=== PATIENT | female | born 1960 | race Caucasian/White ===

== ENCOUNTER 2016-12-30 15:04 | Inpatient (IN) | payer OTHER ==
[~2016-12-30] VITALS: Ht 157.5 cm; Wt 63.5 kg
--- NOTE | ~2016-12-30 | DS ---
Unit #: [id number] #: [id number] Patient: EDNA TATUM [id number] [facility] [address] [place] [address] [id number] MR#: [id number] NAME: EDNA TATUM. ROOM: [facility] Age: 56 Sex: F Admission Date: 12/30/2016 : 1960 Discharge Date: 01/01/2017 Attending Physician: Jose Islas M.D. Primary Care Physician: No Primary Care Physician DISCHARGE SUMMARY REASON FOR ADMISSION The patient is a 56-year-old white female admitted with a recurrence of an amphetamine-induced psychosis. HOSPITAL COURSE [facility] and [facility] suicide precaution. She was continued on previously prescribed home medications. She presented as quite confused and bizarre on her first day of hospitalization but just as had been the case during her last stay in the hospital had cleared entirely on the second day of hospitalization. On that day she requested discharge and it was so ordered. DISCHARGE DIAGNOSES Vinton I Methamphetamine use disorder with intoxication and delirium and perceptual disturbance, resolved. Mood disorder unspecified. Opioid use disorder. Vinton II Vinton III Vinton IV Vinton V DISPOSITION ON DISCHARGE The patient is discharged on the following medications: 1. Proventil HFA 2 puffs q.4 hours p.r.n. shortness of air. 2. Spiriva 18 mcg once daily for COPD. 3. Desyrel 150 mg at bedtime p.r.n. insomnia. 4. Seroquel 400 mg at bedtime for mood stabilization. 5. Pepcid 20 mg daily for GERD. 6. Synthroid 0.112 mg daily for hypothyroidism. DIET AND ACTIVITY No dietary or physical restrictions were placed on the patient at the time of discharge. FOLLOWUP Followup to take place through the auspices of community mental health resources and the chemical dependence intensive outpatient program provided by this facility. Unit #: [id number] #: [id number] Patient: EDNA TATUM PROGNOSIS The patient's prognosis is considered fair but will be considerably should she continue to abuse opiates and methamphetamines. Dictated by... Jose Islas M.D. CB/ally TD: 01/01/2017 15:22 JOB #: [id number] DISCHARGE SUMMARY Page 1 of 1 X Jose Islas MD DISCHARGE SUMMARY
--- NOTE | ~2016-12-30 | HP ---
Unit #: [id number] #: [id number] Patient: EDNA TATUM [id number] [place] [address] [id number] I MR#: [id number] NAME: EDNA TATUM. ROOM: [facility] Age: 56 Sex: F Admission Date: 12/30/2016 : 1960 Attending Physician: Jose Islas M.D. Admitting Physician: Jose Islas M.D. Primary Care Physician: Primary Care Physician No HISTORY AND PHYSICAL HISTORY OF PRESENT ILLNESS Edna is a 56 year old admitted to [facility] because of her continued polysubstance abuse which includes methamphetamine, opioids and alcohol. She has had other admissions to this facility. She is a poor historian so her history is taken from her chart. She is admitted very psychotic. PAST MEDICAL HISTORY 1. Long history of poly-illicit substance abuse to include methamphetamine and opioids. 2. History of alcohol abuse. 3. History of withdrawal seizures. 4. COPD. 5. Hypothyroidism. PAST SURGICAL HISTORY Nothing reported. ALLERGIES Penicillin, Neurontin. SOCIAL HISTORY Smokes 1 pack per day. Drinks alcohol on a daily basis. Admits to a history of illicit substance abuse. FAMILY HISTORY Medically noncontributory. REVIEW OF SYSTEMS She does not answer questions appropriately. There are no reports of nausea, vomiting or diarrhea. She has had no cough or increased temperature. CURRENT MEDICATIONS 1. Detox protocol. 2. Spiriva 18 mcg daily. 3. Pepcid 20 mg b.i.d. 4. Proventil inhaler q.i.d. 5. Synthroid 0.112 mg daily. PHYSICAL EXAMINATION GENERAL: Alert, well-nourished, psychotic, in no apparent distress. VITAL SIGNS: Blood pressure 118/78, heart rate 78, respirations 16, temperature 98.6. Unit #: [id number] #: [id number] Patient: EDNA TATUM WEIGHT: 140. HEIGHT: 5 feet 2 inches. SKIN: Warm and dry without rash or lesion. HEENT: Normocephalic. TMs not viewed. Oral and nasal passages clear. Conjunctivae clear. PERRLA. EOMs intact. NECK: Supple without lymphadenopathy or thyromegaly. HEART: Regular rate and rhythm without murmur. LUNGS: Clear. ABDOMEN: Soft, nontender. : Not done. EXTREMITIES: No evidence of cyanosis, clubbing or edema. Moves all without focal deficit. NEUROLOGICAL: Unable to complete extended exam. She does move all extremities without focal deficit. Hand psychologist educational is equal and gait is normal. IMPRESSION Psychiatric admission. RECOMMENDATIONS PSYCHIATRIC: Per psychiatrist. MEDICAL: See no contraindication to participate in facility's activities. MEDICAL PROGNOSIS Good. MEDICAL CONDITION Stable. Dictated by... Marj Coronado P.A.-C. for Dinah Flores/conchita TD: 12/31/2016 19:15 JOB #: [id number] HISTORY AND PHYSICAL Page 1 of 1 X Marj Coronado X HISTORY AND PHYSICAL
--- NOTE | ~2016-12-30 | PA ---
Unit #: [id number] #: [id number] Patient: EDNA TATUM [id number] [place] [address] [id number] I MR#: [id number] NAME: EDNA TATUM. ROOM: [facility] Age: 56 Sex: F Admission Date: 12/30/2016 : 1960 Date of Assessment: 12/31/2016 Attending Physician: Jose Islas M.D. Admitting Physician: Jose Islas M.D. Primary Care Physician: Primary Care Physician No PSYCHIATRIC ASSESSMENT IDENTIFYING INFORMATION The patient is a 56-year-old white female admitted with probable methamphetamine-induced psychosis. CHIEF COMPLAINT None given. INFORMANT(S) Patient and chart, reliability is good. HISTORY OF PRESENT ILLNESS The patient is a 56-year-old white female known to this physician from a previous admission which occurred in May of this year. The patient was admitted at that time exhibiting symptoms of methamphetamine-induced psychosis which cleared rapidly. The patient once again admits that she has been abusing methamphetamine and was readmitted to the hospital reporting delusional thinking, paranoia, etc. She has been abusing methamphetamine and methadone. For more complete history of present illness, please refer to previously dictated notes. PAST PSYCHIATRIC HISTORY Reviewed, no changes. PAST MEDICAL HISTORY Reviewed, no changes. MEDICATIONS 1. Combivent. 2. Progesterone. 3. Zoloft. 4. Trazodone. 5. Synthroid. 6. Symbicort. 7. Xanax. 8. Flexeril. 9. Seroquel. ALLERGIES Penicillin, amoxicillin, gabapentin. FAMILY HISTORY Reviewed, no changes. Unit #: [id number] #: [id number] Patient: EDNA TATUM SOCIAL HISTORY Reviewed, no changes. MENTAL STATUS EXAMINATION Examination at this time reveals the patient to be a disheveled white female appearing somewhat older than her stated age of 56 years. She is in no apparent physical distress at the time of examination. She is awake, alert, and oriented in all spheres. Her mood is occasionally confabulatory and tangential, but the patient's mood is dysphoric, her affect blunted. Formal testing of memory and cognition not possible at this time secondary to the patient's inability to comply. Her judgment and insight appear to be significant and impaired. She does exhibit some paranoid thinking. She denies suicidal or homicidal ideation. Her judgment and insight appear to be significantly impaired. ASSETS AND LIABILITIES The patient's assets are to be assessed. Liabilities: Lack of resources. Ongoing substance abuse. DIAGNOSTIC IMPRESSION 1. Methamphetamine use disorder with intoxification and perceptual disturbance. 2. Opioid use disorder. 3. Cannabis use disorder. 4. Chronic obstructive pulmonary disease. 5. Hypothyroidism. 6. Hepatitis B and C by history. 7. Gastroesophageal reflux disease. TREATMENT PLAN The patient remains hospitalized for safety and stabilization. It is my expectation that the patient's psychotic symptoms should once again clear rapidly as the intoxicating effects of methamphetamine resolved. ESTIMATED LENGTH OF STAY 3 to 5 days with followup to take place through the auspices of community mental health resources. Dictated by... Jose Islas M.D. FAMILIA/taiwo TD: 12/31/2016 14:22 JOB #: [id number] Unit #: [id number] #: [id number] Patient: EDNA TATUM PSYCHIATRIC ASSESSMENT Page 1 of 1 X Jose Islas MD X PSYCHIATRIC ASSESSMENT
[2016-12-31 10:08] LABS: ALBUMIN SERUM 3.7 g/dL (3.5-5.0); BILIRUBIN,TOTAL 0.6 mg/dL (0.2-2.0); BUN/CREATININE RATIO 25.71; CALCIUM SERUM 9.1 mg/dL (8.4-10.2); CREATININE SERUM 0.7 mg/dL (0.6-1.4); GLOM FILT RATE Estimated 98.2 mL/min (>60); POTASSIUM 3.9 mmol/L (3.5-5.1); PROTEIN TOTAL SERUM 6.5 g/dL (6.0-8.3)
== END 2017-01-01 16:05 | DRG 897 ==
LOC: P1E 19:31
PROVIDERS: Specialist
DX: F15.222 Other stimulant dependence with intoxication with perceptual disturbance (principal); F11.20 Opioid dependence, uncomplicated; J44.9 Chronic obstructive pulmonary disease, unspecified; F12.20 Cannabis dependence, uncomplicated; Z86.19 Personal history of other infectious and parasitic diseases; E03.9 Hypothyroidism, unspecified; K21.9 Gastro-esophageal reflux disease without esophagitis; F17.210 Nicotine dependence, cigarettes, uncomplicated; Z88.0 Allergy status to penicillin; Z88.8 Allergy status to other drugs, medicaments and biological substances; F39 Unspecified mood [affective] disorder
CPT/HCPCS: 80053; 86592